=== PATIENT | female | born 1935 | race Caucasian/White ===

== ENCOUNTER 2016-09-06 18:15 | Emergency (ER) | payer MEDICARE, OTHER ==
[~2016-09-06 18:15] MED LIST: ACETAMINOPHEN325 M2 PO; ADVIL200 M3 PO; ASPIRIN EC81 M1 PO; ASPIRIN325 M3 PO; AZO URINARY TR1 EACH; AZO URINARY TR1 EACH PO; BRILINTA90 MG PO; CIPRO XR500 MG PO; DEEP SEA45 ML NS; FLEXERIL10 MG PO; IBUPROFEN200 M1 PO; LOW DOSE ASPIRI81 M3 PO; MOBIC15 M2 PO; NITROSTAT0.4 MG SL; OMEPRAZOLE20 M3 PO; PEPCID20 MG PO; PYRIDIUM200 MG PO; TOPROL XL25 M1 PO; TOPROL-XL25 MG/TA5 PO; TRAMADOL HCL50 M2 PO; TYLENOL325 M2 PO
[2016-09-06 18:48] LABS: URINE BILIRUBIN NEGATIVE (NEG); URINE BLOOD LARGE (NEG); URINE GLUCOSE (UA) NEGATIVE (NEG); URINE KETONE NEGATIVE (NEG); URINE LEUKOCYTE ESTERASE POSITIVE (NEG); URINE NITRITE POSITIVE (NEG); URINE PROTEIN MODERATE (NEG); URINE SPECIFIC GRAVITY 1.015 (1.003-1.030)
[2016-09-06 18:51] LABS: URINE APPEARANCE CLOUDY; URINE COLOR YELLOW
[2016-09-06 19:01] LABS: URINE AMORPHOUS 2+; URINE BACTERIA 1+; URINE RBC RARE /[HPF] (0-5); URINE WBC FULL FIELD /[HPF] (0-5)
[2016-09-06] MEDS ORDERED: MACROBID 100 M100 M1 PO (20:01)
== END 2016-09-06 20:10 ==
LOC: EDMED 18:15
PROVIDERS: Emergency Medicine
DX: N39.0 Urinary tract infection, site not specified (principal); R21 Rash and other nonspecific skin eruption; S00.86XA Insect bite (nonvenomous) of other part of head, initial encounter; W57.XXXA Bitten or stung by nonvenomous insect and other nonvenomous arthropods, initial encounter; J45.909 Unspecified asthma, uncomplicated; Z79.51 Long term (current) use of inhaled steroids